=== PATIENT | male | born 1950 | race African-American/Black ===

== ENCOUNTER → 2016-12-02 | Outpatient (CLI) | payer OTHER ==
[2013-11-10 15:00] VITALS: BP 178/102
[~2016-12-02] MED LIST: CARV3.12 PO; CITA40TA12 PO; DILT240C4 PO; LEVO500T59 PO; LOSA1TAB16 PO; PANT40GR PO
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
== END | disposition home or self-care (01) ==
LOC: CT 11:45
PROVIDERS: ATTEND Family Medicine
DX: Z12.11 Encounter for screening for malignant neoplasm of colon (principal); J44.9 Chronic obstructive pulmonary disease, unspecified
CPT/HCPCS: 71250

== ENCOUNTER 2016-12-10 07:02 | Outpatient (CLI) | payer OTHER ==
[~2016-12-10] VITALS: Ht 182.9 cm; Wt 98.4 kg
[2016-12-10] VITALS (13 sets, daily range): BP systolic 117–147; BP diastolic 55–100
[2016-12-10] MEDS ORDERED: TAMS0.4C2 PO (07:25)
[2016-12-10 07:33] LABS: BASO % 0 % (0-3); EOS % 2 % (0-3); HEMATOCRIT 46.8 % (39.0-53.0); HEMOGLOBIN 15.6 g/dL (13.0-17.5); LYMPH # 2.6 x10^3/uL (1.0-4.8); LYMPH % 29 % (24-48); MEAN CORPUSCULAR HEMOGLOBIN 30 pg (25-35); MEAN CORPUSCULAR HGB CONC 33 g/dL (31-37); MEAN CORPUSCULAR VOLUME 90 fL (79-100); MONO % 11 % (0-9); NEUT % 58 % (31-73); PLATELET COUNT 260 x10^3/uL (140-400); RED BLOOD COUNT 5.18 x10^6/uL (4.30-5.70); RED CELL DISTRIBUTION WIDTH 15.5 % (11.5-14.5); WHITE BLOOD COUNT 8.9 x10^3/uL (4.0-11.0)
[2016-12-10 07:42] LABS: INR 0.9 (0.8-1.1); PROTHROMBIN TIME PATIENT 11.8 SEC (11.7-14.0)
[2016-12-10] MEDS ORDERED: MIDAZOLAM HCL/PF 2 MG/2 ML VIAL. ONE (08:10)
[2016-12-10] MEDS ORDERED: fentaNYL PF VIAL 100 MCG/2 ML VIAL ONE (08:10)
[2016-12-10] MEDS ORDERED: LIDOCAINE 1% / SOD BICARB 8.4% 20 ML VIAL. IJ ONE ×3 (08:10→10:15)
[2016-12-10] MEDS ORDERED: fentaNYL PF VIAL 100 MCG/2 ML VIAL IV ONE ×2 (09:00→10:15)
[2016-12-10] MEDS ORDERED: MIDAZOLAM HCL/PF 2 MG/2 ML VIAL. IV ONE ×2 (09:00→10:15)
--- NOTE | 2016-12-10 09:43 | RAD ---
CT-guided biopsy, right lower lobe mass 12/10/2016 Indication: Right lower lobe mass, concerning for malignancy. Discussion: The risks and benefits of the procedure were discussed with the patient and his . Informed consent was obtained. The patient was brought to the CT scanner and placed in the prone position. Timeout procedure was performed. Posterior chest was prepped and draped using neck sterile barrier technique. CT imaging was performed confirming presence of a spiculated mass in the right lower lobe. Once an appropriate site for skin entry been selected 1% lidocaine without epinephrine was administered for local anesthesia. Following this a 19-gauge guiding needle was advanced to the periphery of the lesion. Multiple 20-gauge core biopsy samples were obtained and placed in formalin. The guiding needle was removed and pressure held. Post biopsy imaging demonstrates no pneumothorax and very minimal perilesional hemorrhage. The patient tolerated the procedure well and remained hemodynamically stable throughout. She was transferred to the recovery area in stable condition. The procedure was performed under conscious sedation including continuous cardiopulmonary monitoring via a dedicated sedation nurse. Sedation time: 20 minutes Impression: CT-guided biopsy, right lower lobe mass
--- NOTE | 2016-12-10 12:00 | RAD ---
Single view of the Chest 12/10/2016 1:30 PM Indication: S/P Right lung mass biopsy Comparison: Chest radiograph November 08, 2013 Findings: No pneumothorax is identified. No pleural effusion is seen. Minimal left basilar atelectasis may be present. Biopsied mass in the right lower lobe is poorly visualized radiographically. Chronic right rib fractures noted. No acute osseous changes are seen. Cardiomediastinal silhouette is grossly stable. Impression: No evidence of pneumothorax or other complication following biopsy of right lower lobe mass.
--- NOTE | 2016-12-12 15:05 | PATHOLOGY ---
PATHOLOGY REPORT * * * * * * * * FINAL DIAGNOSIS: Lung tissue, right lung mass CT guided biopsy: - adenocarcinoma, MODERATELY DIFFERENTIATED. SEE COMMENT. COMMENT: Sections of the right lung mass CT guided biopsy show extensive replacement of lung parenchyma by a malignant epithelial neoplasm. The malignant cells are present in irregular nests and apparent acinar structures and focally have a papillary configuration. The malignant cells have ample amounts of pale eosinophilic cytoplasm, and possess enlarged, rounded to ovoid moderately pleomorphic hyperchromatic nuclei containing prominent nucleoli. The tumor is associated with a reactive and focally inflamed desmoplastic stroma. There are foci of tumor necrosis. The tumor shows no evidence of keratinization. A panel of immunoperoxidase stains is obtained and yields the following results: Cytokeratin 7: Tumor cells positive Cytokeratin 5/6: Tumor cells negative P63: Tumor cells negative P40: Tumor cells negative Napsin A: Tumor cells positive TTF-1: Tumor cells positive The morphologic and immunophenotypic findings are supportive of the diagnosis of a moderately-differentiated adenocarcinoma of pulmonary origin. The case is also examined with Dr. Santos, who concurs with the diagnosis. (JPM:pit/mml; 12/11/2016) REPORT ELECTRONICALLY SIGNED BY: Neo Elizabeth M.D. DATE/TIME: 12/12/2016 15:04 * * * * * * * * GROSS PATHOLOGY: Received in formalin labeled "Lee Vazquez, right lung biopsy," are multiple needle core segments of cool soft tissue measuring from less than 0.1 up to 0.8 cm in maximum dimension. The specimen is submitted entirely in cassette A1. Multiple slides will be requested. (JPM; 12/10/16) INITIAL CPT CODE(S): A; 18480, 24268, 10193, 05030, 90075, 39112, 64065 Professional services performed by [facility] at [address] [address] Technical services performed by [facility] at [address] [place] [address], [address], [place] [address]. SPECIMEN(S) RECEIVED: A.Right lung mass CLINICAL HISTORY: Right lung mass PATIENT: LEE VAZQUEZ /AGE: 408/27/1950 (Age: 66) PATIENT #: [id number] ALT CASE #: SPECIMEN COLLECTION DATE: 12/10/2016 SPECIMEN RECEIVED DATE: 12/10/2016 [facility] - [id number] [address] - PHONE: [phone] * * * END OF REPORT * * *
== END 2016-12-10 12:15 | disposition home or self-care (01) ==
LOC: INTRAD 07:02
PROVIDERS: ATTEND Internal Medicine Pulmonary Disease
DX: R91.8 Other nonspecific abnormal finding of lung field (principal); K21.9 Gastro-esophageal reflux disease without esophagitis; F32.9 Major depressive disorder, single episode, unspecified; F17.200 Nicotine dependence, unspecified, uncomplicated; Z72.89 Other problems related to lifestyle; Z72.0 Tobacco use; Z79.01 Long term (current) use of anticoagulants
CPT/HCPCS: 32405; 36415; 71010; 77012; 85027; 85610; 99152; C1887; J2250; J3010

== ENCOUNTER → 2016-12-11 | Outpatient (CLI) | payer OTHER ==
[2016-12-10 12:00] VITALS: BP 141/100
[~2016-12-11] MED LIST changes: +TAMS0.4C2 PO
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
== END | disposition home or self-care (01) ==
LOC: PETSC 09:46
PROVIDERS: ATTEND Internal Medicine Pulmonary Disease
DX: N40.0 Benign prostatic hyperplasia without lower urinary tract symptoms (principal); K57.30 Diverticulosis of large intestine without perforation or abscess without bleeding; N28.1 Cyst of kidney, acquired; I51.7 Cardiomegaly; I77.810 Thoracic aortic ectasia; R91.8 Other nonspecific abnormal finding of lung field; R91.1 Solitary pulmonary nodule; Z18.10 Retained metal fragments, unspecified
CPT/HCPCS: 78815; A9552

== ENCOUNTER → 2018-02-24 | Outpatient (CLI) | payer OTHER ==
[2016-12-10 12:00] VITALS: BP 141/100
[~2018-02-24] MED LIST changes: -LOSA1TAB16 PO; +LOSA1TAB19 PO; +REGADENOSON 0.4 MG/5 ML DISP.SYRIN. IV ONE
--- NOTE | 2018-02-24 10:07 | CARD ---
MR#: [id number] Date of Study: 02/24/2018 Ordering Physician: AMBROSIO KAUR, Referring Physician: AMBROSIO KAUR Tech: Sylvia Banks RDCS APPROVED REPORT EXAM: Two-dimensional and M-mode echocardiogram with Doppler and color Doppler. Other Information Quality : GoodHR: 60bpm Rhythm : NSR INDICATION Dyspnea 2D DIMENSIONS RVDd3.4 (2.9-3.5cm)Left Atrium(2D)3.4 (1.6-4.0cm) IVSd1.1 (0.7-1.1cm)Aortic Root(2D)4.1 (2.0-3.7cm) LVDd5.3 (3.9-5.9cm)LVOT Diameter2.4 (1.8-2.4cm) PWd1.1 (0.7-1.1cm)LVDs2.9 (2.5-4.0cm) FS (%) 44.3 %SV101.3 ml LVEF(%)75.2 (>50%) M-Mode DIMENSIONS Left Atrium(MM)3.19 (2.5-4.0cm)Aortic Root4.37 (2.2-3.7cm) Aortic Valve AoV Peak Rigo.126.7cm/sAoV VTI24.5cm AO Peak GR.6.4mmHgLVOT Peak Rigo.91.2cm/s AO Mean GR.4mmHgAVA (VMAX)3.37cm2 GLENNY (VTI)3.40cm2 Mitral Valve MV E Eqryeqvf60.0cm/sMV E Peak Gr.3mmHg MV DECEL ITQV125ouAU A Zdwdclyn35.7cm/s MV E Mean Gr.2mmHgE/A Ratio0.5 MV A Qzbiwqmj159ra Pulmonary Valve PV Peak Llenhdsi39.7cm/s Tricuspid Valve TR P. Xofpkqpk052rm/sRAP UGVTEDRP4wrXe TR Peak Gr.80bpDiALAU74sqJw LEFT VENTRICLE The left ventricle is normal size. There is borderline concentric left ventricular hypertrophy. The l eft ventricular systolic function is normal. The Ejection Fraction is 65-70%. There is normal LV segm ental wall motion. Transmitral Doppler flow pattern is Grade I-abnormal relaxation pattern. RIGHT VENTRICLE The right ventricle is normal size. There is normal right ventricular wall thickness. The right ventr icular systolic function is normal. ATRIA The left atrium size is normal. The right atrium size is normal. The interatrial septum is intact wit h no evidence for an atrial septal defect or patent foramen ovale as noted on 2-D or Doppler imaging. AORTIC VALVE The aortic valve is mildly calcified on the non coronary cusp. The aortic valve is trileaflet. Dopple r and Color Flow revealed no significant aortic regurgitation. There is no significant aortic valvula r stenosis. MITRAL VALVE The mitral valve is normal in structure and function. There is no evidence of mitral valve prolapse. There is no mitral valve stenosis. Doppler and Color-flow revealed trace mitral regurgitation. TRICUSPID VALVE The tricuspid valve is normal in structure and function. Doppler and Color Flow revealed trace tricus pid regurgitation. The PA pressure was estimated at 22 mmHg. There is no tricuspid valve prolapse or vegetation. There is no tricuspid valve stenosis. PULMONIC VALVE The pulmonary valve is normal in structure and function. Doppler and Color Flow revealed no pulmonic valvular regurgitation. There is no pulmonic valvular stenosis. GREAT VESSELS The aortic root is mildly enlarged. The ascending aorta is Mildly dilated. PERICARDIAL EFFUSION There is no evidence of significant pericardial effusion. Critical Notification Critical Value: No <Conclusion> The left ventricular systolic function is normal. The Ejection Fraction is 65-70%. There is normal LV segmental wall motion. Transmitral Doppler flow pattern is Grade I-abnormal relaxation pattern. The aortic root is mildly enlarged. Trace mitral regurgitation. Trace tricuspid regurgitation. The PA pressure was estimated at 22 mmHg. There is no evidence of significant pericardial effusion. Signed by : Ambrosio Kaur, Electronically Approved : 02/24/2018 10:06:34
--- NOTE | 2018-02-24 11:02 | RAD ---
MR#: [id number] Date of Study: 02/24/2018 Ordering Physician: AMBROSIO KAUR Referring Physician: RUIZ AMOS Tech: RT Cindy (R) (N) APPROVED REPORT Test Type: Pharmacological Stress Nurse/Tech: Ekta Sharma R.N. Test Indications: Dyspnea Cardiac History: Hypertension, smoker Medications: See Electronic Medical Record Medical History: See Electronic Medical Record Resting ECG: Sinus Arrythmia Resting Heart Rate: 64 bpm Nurse/Tech Notes SiS2, Lungs sound clear Consent: The procedure was explained to the patient in lay terms. Informed consent was witnessed. Remy eout was entered into [employer]. History and Stress Test performed by Ekta Sharma R.N. Pharm. Details Pharmacologic stress testing was performed using 0.4mg per 5ml of regadenoson given intravenously ove r 7-10 seconds. Stress Symptoms Dyspnea POST EXERCISE Reason for Termination: Infusion complete Target HR: 140 Max HR: 96 bpm Max Blood Pressure: 146/88mmHg Blood Pressure response to exercise: Normal blood pressure response during stress. Chest Pain: No. Arrhythmia: No. ST Change: No. INTERPRETATION Stress EKG Conclusion: Baseline EKG showed sinus rhythm with PAC's. No ischemic changes at peak stre ss. No arrhythmias. Imaging Protocol IMAGE PROTOCOL: Rest Tc-99m/stress Tc-99m 1 day Rest: Stress: Viability: Radiopharm.Tc99m DpxiozcvpMt72e Sestamibi Eeyy01qSp 33.2mCi Duration 15min. 12min. Img Date 02/24/2018 02/24/2018 Inj-Img Fpip31qrs. 60min. Rest Admin Site:IV - Right AntecubitalAdministrator:RT Cindy (Shannan)(N) Stress Admin Site: IV - Right AntecubitalAdministrator: RT Cindy (R)(N) STRESS DATA End Diast. Vol.113.0mlAv. Heart Rate86.0bpm End Syst. Vol.31.0mlCO Index BSA7.0L/min Myocardial Juho297.0gEject. Imfirllm34.0% Stress Rates Pk. Fill Rate3.64EDV/secLVtime Pk. Fill 206.05msec Pk. Empty Rate4.75ESV/secLVtime Pk. Vxthq778.29msec / Pk. Fill0.68EDV/sec Stress Scores Regional WT1.00Summed WT4.00 Regional WM0.00Summed WM0.00 Study quality was good. Left Ventricular size was Normal at Rest and Stress. Lung uptake was . Left Ventricular ejection fraction is 73%. The rest and stress images show normal perfusion, normal contraction and thickening. LV Perf. Quant 17 Seg. SSS1.00 17 Seg. SRS0.00 17 Seg. SDS1.00 Stress Defect Extent (% LAD)0.00Rest Defect Extent (% LAD)0.00Rev. Defect Extent (% LAD)0.00 Stress Defect Extent (% LCX) 22.50Rest Defect Extent (% LCX)11.30Rev. Defect Extent (% LCX)20.00 Stress Defect Extent (% RCA)0.00Rest Defect Extent (% RCA)0.00Rev. Defect Extent (% RCA)0.00 Stress Defect Extent (% AJ)3.90Rest Defect Extent (% AJ)2.00Rev. Defect Extent (% AJ)3.50 Conclusion 1. Regadenoson cardioisotope stress test did not show any evidence of ischemia or infarct. 2. Normal left ventricular systolic function with ejection fraction calculated at 73%. 3. Low risk for cardiac events. Signed by : Ambrosio Kaur, Electronically Approved : 02/24/2018 11:01:18
== END | disposition home or self-care (01) ==
LOC: NM 07:33
PROVIDERS: ATTEND Internal Medicine Cardiovascular Disease
DX: R06.09 Other forms of dyspnea (principal); I10 Essential (primary) hypertension; J44.9 Chronic obstructive pulmonary disease, unspecified; K21.9 Gastro-esophageal reflux disease without esophagitis; F17.200 Nicotine dependence, unspecified, uncomplicated
CPT/HCPCS: 78452; 93017; 93306; 96374; 96375; 96376; A9500; J2785

== ENCOUNTER → 2018-02-24 | Outpatient (CLI) | payer OTHER ==
[2016-12-10 12:00] VITALS: BP 141/100
[~2018-02-24] MED LIST changes: -REGADENOSON 0.4 MG/5 ML DISP.SYRIN. IV ONE
--- NOTE | 2018-02-24 13:41 | RAD ---
CT study of the chest without contrast Clinical indications: History of lung cancer. History of right lower lobectomy. COMPARISON: Chest CT dated December 02, 2016. TECHNIQUE: Noncontrast helical CT scanning of the chest was performed. PQRS compliance Statement One or more of the following individualized dose reduction techniques were utilized for this study: 1. Automated exposure control 2. Adjustment of the mA and/or kV according to patient size 3. Use of iterative reconstruction technique FINDINGS: There is a calcified lymph nodes in the subcarinal and right hilar region due to old granulomatous disease. These have not changed significantly in size. No enlarging thoracic lymphadenopathy is evident. No focal aneurysmal dilatation of the thoracic aorta is seen. The heart size is normal and no pericardial effusion is seen. No pleural effusion or pneumothorax is seen. Postoperative changes of the right hemithorax are seen secondary to right lower lobe lobectomy which has been performed in the interim. Calcified granuloma of the posterior right upper lobe is seen. No other lung nodule or lung mass is seen. No consolidative lung infiltrate is seen. Metallic foreign bodies of the right midlung and liver and left upper quadrant of the abdomen are seen. No adrenal mass is seen. No osteolytic process is evident. IMPRESSION: Postoperative changes of the right hemithorax. No new lung mass or new lung nodule or acute consolidative lung infiltrate is seen. Electronically signed by: Tenzin Styles MD (02/24/2018 1:38 PM) [facility]
== END | disposition home or self-care (01) ==
LOC: CT 07:28
PROVIDERS: ATTEND Internal Medicine Pulmonary Disease
DX: Z08 Encounter for follow-up examination after completed treatment for malignant neoplasm (principal); R91.8 Other nonspecific abnormal finding of lung field; Z85.118 Personal history of other malignant neoplasm of bronchus and lung; Z98.890 Other specified postprocedural states; F17.200 Nicotine dependence, unspecified, uncomplicated
CPT/HCPCS: 71250

== ENCOUNTER → 2019-06-10 | Outpatient (CLI) | payer OTHER ==
[2016-12-10 12:00] VITALS: BP 141/100
--- NOTE | 2019-06-10 17:40 | RAD ---
EXAM: CT OF THE CHEST WITHOUT CONTRAST. HISTORY: Lung cancer status post partial pneumonectomy. TECHNIQUE: Computed tomography of the chest was performed without intravenous contrast. One or more of the following individualized dose reduction techniques were utilized for this examination: 1. Automated exposure control. 2. Adjustment of the mA and/or kV according to patient size. 3. Use of iterative reconstruction technique. COMPARISON: 02/24/2018. FINDINGS: Images of the upper abdomen reveal no acute abnormality. Small metallic objects project within hepatic segment 8, and adjacent to the left colon. 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 Bone windows reveal no suspicious lesions. There is a moderate Schmorl's node at the superior endplate of T6, unchanged. There a mild chronic superior plate compression fracture at T5. Postthoracotomy changes are noted along the right ribs. There are no pathologically enlarged mediastinal or axillary lymph nodes. There is no pleural or pericardial effusion. The heart is not enlarged. The ascending aorta is ectatic at 4.6 cm. The proximal descending thoracic aorta is also ectatic at 4.3 cm. There are changes of right lower lobectomy. There is mild scarring in the right costophrenic angle. A fiducial marker is suspected within the right upper lobe inferiorly on image 31. There is a calcified granuloma in the right upper lobe posteriorly. Centrilobular emphysema is mild to moderate. IMPRESSION: 1. Status post right lower lobectomy. No evidence of recurrent or metastatic disease. 2. 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 The descending portion measures 4.3 cm. 3. 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 Electronically signed by: Maribell Mott MD (06/10/2019 5:37 PM) [facility]
== END | disposition home or self-care (01) ==
LOC: CT 10:17
PROVIDERS: ATTEND Internal Medicine Pulmonary Disease
DX: Z08 Encounter for follow-up examination after completed treatment for malignant neoplasm (principal); J43.2 Centrilobular emphysema; M51.44 Schmorl's nodes, thoracic region; I77.819 Aortic ectasia, unspecified site; J98.4 Other disorders of lung; J84.10 Pulmonary fibrosis, unspecified; Z90.2 Acquired absence of lung [part of]
CPT/HCPCS: 71250

== ENCOUNTER → 2020-06-04 | Outpatient (CLI) | payer OTHER ==
[2016-12-10 12:00] VITALS: BP 141/100
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
== END ==
LOC: CT 09:16
PROVIDERS: ATTEND Internal Medicine Pulmonary Disease
DX: C34.90 Malignant neoplasm of unspecified part of unspecified bronchus or lung (principal); J43.2 Centrilobular emphysema; R59.9 Enlarged lymph nodes, unspecified; Z90.2 Acquired absence of lung [part of]
CPT/HCPCS: 71250

== ENCOUNTER → 2020-07-13 | Outpatient (CLI) | payer OTHER ==
[2016-12-10 12:00] VITALS: BP 141/100
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
== END ==
LOC: PETSC 11:54
PROVIDERS: ATTEND Internal Medicine Hematology & Oncology
DX: C34.31 Malignant neoplasm of lower lobe, right bronchus or lung (principal); J43.2 Centrilobular emphysema; R91.1 Solitary pulmonary nodule; K57.30 Diverticulosis of large intestine without perforation or abscess without bleeding
CPT/HCPCS: 78815; A9552

== ENCOUNTER → 2020-08-20 | Outpatient (CLI) | payer OTHER ==
[2016-12-10 12:00] VITALS: BP 141/100
[2020-08-20 13:41] LABS: BASO % 0 % (0-3); EOS # 0.1 x10^3/uL (0.0-0.7); EOS % 1 % (0-3); HEMATOCRIT 43.9 % (39.0-53.0); HEMOGLOBIN 14.8 g/dL (13.0-17.5); LYMPH # 2.1 x10^3/uL (1.0-4.8); LYMPH % 25 % (24-48); MEAN CORPUSCULAR HEMOGLOBIN 30 pg (25-35); MEAN CORPUSCULAR HGB CONC 34 g/dL (31-37); MEAN CORPUSCULAR VOLUME 89 fL (79-100); MONO # 0.9 x10^3/uL (0.0-1.1); MONO % 11 % (0-9); NEUT # 5.4 x10^3/uL (1.8-7.7); NEUT % 64 % (31-73); PLATELET COUNT 294 x10^3/uL (140-400); RED BLOOD COUNT 4.92 x10^6/uL (4.30-5.70); RED CELL DISTRIBUTION WIDTH 15.1 % (11.5-14.5); WHITE BLOOD COUNT 8.5 x10^3/uL (4.0-11.0)
[2020-08-20 13:51] LABS: CALCIUM 8.8 mg/dL (8.5-10.1); CREATININE 0.9 mg/dL (0.7-1.3); GFR 101.8; POTASSIUM 4.2 mmol/L (3.5-5.1)
[2020-08-20 13:57] LABS: ALBUMIN 3.9 g/dL (3.4-5.0); TOTAL BILIRUBIN 0.5 mg/dL (0.2-1.0); TOTAL PROTEIN 7.8 g/dL (6.4-8.2)
== END ==
LOC: ONCLAB 13:30
PROVIDERS: ATTEND Internal Medicine Hematology & Oncology
DX: C34.31 Malignant neoplasm of lower lobe, right bronchus or lung (principal)
CPT/HCPCS: 36415; 80053; 85025